=== PATIENT | male | born 1960 | race Two or more races ===

== ENCOUNTER 2016-11-08 08:22 | Day surgery (SDC) | payer OTHER ==
[~2016-11-08] VITALS: Ht 165.1 cm; Wt 81.8 kg
[2016-11-08] MEDS ORDERED: FLOMAX0.4 MG PO (08:53)
[2016-11-08 08:54] VITALS: BP 132/89
[2016-11-08] MEDS ORDERED: PERCOCET 5/31 TABLET PO (11:58)
[2016-11-08 13:17] VITALS: BP 106/70
[2016-11-08 14:21] VITALS: BP 108/70
== END 2016-11-08 14:48 | disposition home or self-care (01) ==
LOC: SDC
PROC: 0YU50JZ Supplement Right Inguinal Region with Synthetic Substitute, Open Approach (ICD-10-PCS; principal; 2016-11-08)
DX: K43.2 Incisional hernia without obstruction or gangrene (principal); G57.81 Other specified mononeuropathies of right lower limb
CPT/HCPCS: C1781; J0131; J0690; J1100; J1885; J2250; J2405; J3010